=== PATIENT | female | born 1960 | race Caucasian/White ===

== ENCOUNTER 2018-06-02 19:14 | Emergency (ER) | payer OTHER ==
[2018-06-02 19:35] VITALS: BP 158/113; PULSE 118; TEMP 98.3; BMI 51.2
[2018-06-02] MEDS ORDERED: valACYclovir HCL 1000 MG TABLET PO ONE (20:08)
[2018-06-02] MEDS ORDERED: predniSONE 20 MG TABLET (UD) PO ONE (20:08)
[2018-06-02] MEDS ORDERED: predniSONE 20 MG TABLET (UD) ONE (20:17)
[2018-06-02] MEDS ORDERED: valACYclovir HCL 500 MG TABLET (FP) ONE (20:17)
--- NOTE | 2018-06-02 20:30 | PDOC ---
Documentation entered by Himanshu Hernandez SCRIBE, acting as scribe for Jorge Rincon MD. Jorge Rincon MD: This documentation has been prepared by the Mary luo Nirvannie, SCRIBE, under my direction and personally reviewed by me in its entirety. I confirm that the documentation accurately reflects all work, treatment, procedures, and medical decision making performed by me. History of Present Illness - General Chief Complaint: Facial Droop Stated Complaint: RIGHT FACIAL DROOP Time Seen by Provider: 06/02/18 19:18 History Source: Patient Exam Limitations: No Limitations - History of Present Illness Initial Comments: 06/02/18 20:30 HPI: The patient is a 58 year old female, with a significant past medical history of anxiety and depression, who presents to the emergency department with, right sided facial droop with decreased blinking to the right eye. As per patient, she noticed the onset of her symptoms at approximately 12pm today. She notes that she has to manually close her eye fully prompting her to go to urgent care at which time she was advised to report to the ED for further evaluation She denies any focal weakness or changes in strength/sensation. She denies any visionary or auditory changes. She denies recent fevers, chills, headache or dizziness. She denies recent nausea, vomit, diarrhea or constipation. She denies recent dysuria, frequency, urgency or hematuria. She denies recent chest pain or shortness of breath. PAST MEDICAL HISTORY: Anxiety and depression. PAST SURGICAL HISTORY: Tonsillectomy and . FAMILY HISTORY: no pertinent history SOCIAL HISTORY: Pt lives with family and is employed. MEDICATIONS: reviewed ALLERGIES: As per nursing notes ROS: General: No fevers or chills, no weakness, no weight loss HEENT: No change in vision. No sore throat,. No ear pain CardioVascular: No chest pain or shortness of breath Respiratory:No cough, or wheezing. Gastrointestinal: no nausea, vomiting, diarrhea or constipation, No rectal bleeding Genitourinary: No dysuria, hematuria, or frequency Musculoskeletal: No joint or muscle pain or swelling Neurologic: +Right facial droop. +Decreased blinking of the right eye. No headache, vertigo, dizziness or loss of consciousness Psychiatric: nor depression Skin: No rashes or easy bruising Endocrine: no increased thirst or abnormal weight change Allergic: no skin or latex allergy All other systems reviewed and normal Physical Exam: GENERAL: The patient is awake, alert, and fully oriented, in no acute distress. HEAD: Normal with no signs of trauma. EYES: Pupils equal, round and reactive to light, extraocular movements intact, sclera anicteric, conjunctiva clear. EXTREMITIES: Normal range of motion, no edema. NEUROLOGICAL: +Right sided facial droop involving forehead, decreased ability to close right eye. Normal speech, normal gait. PSYCH: Normal mood, normal affect. SKIN: Warm, Dry, normal turgor, no rashes or lesions noted. Past History - Past Medical History Allergies/Adverse Reactions: Allergies Allergy/AdvReac Type Severity Reaction Status Date / Time No Known Allergies Allergy Verified 06/02/18 19:15 Home Medications: Ambulatory Orders Bupropion HCl [Wellbutrin Xl -] 450 mg PO DAILY 06/02/18 Desvenlafaxine Succinate [Pristiq ER] 100 mg PO DAILY 06/02/18 Lisdexamfetamine Dimesylate [Vyvanse] 70 mg PO DAILY 06/02/18 Mv-Mn/Folic Acid/Vit [id number] [Alive Once Daily Women 50 Plus] 1 each PO DAILY 06/02/18 COPD: No Psychiatric Problems: Yes - Suicide/Smoking/Psychosocial Hx Smoking History: Never smoked Hx Alcohol Use: No Drug/Substance Use Hx: No *Physical Exam - Vital Signs Last Vital Signs Temp Pulse Resp BP Pulse Ox 98.3 F 118 H 18 158/113 H 100 06/02/18 19:15 06/02/18 19:15 06/02/18 19:15 06/02/18 19:15 06/02/18 19:15 ED Treatment Course - RADIOLOGY Radiology Studies Ordered: Category Date Time Status HEAD CT (STROKE) [CT] Stat CT Scan 06/02/18 19:36 Completed *DC/Admit/Observation/Transfer Diagnosis at time of Disposition: Serrano's palsy - Discharge Dispostion Disposition: HOME Condition at time of disposition: Good Decision to Admit order: No - Referrals - Patient Instructions Printed Discharge Instructions: DI for Serrano's Palsy Additional Instructions: Take 80mg of prednisone a day for 1 week then start tapering the dose according to the following schedule. jose maria 8 and 9 take 60mg day 10 and 11 take 40mg day 12 and 13 take 20mg day 14 and 15 take 10mg skip day 16 take 5mg on day 17 Take valtrex 1000mg 3 times a day for 7 days. Return to the emergency department immediately with ANY new, persistent or worsening symptoms. Continue any medications as previously prescribed by your physician. You should follow up with your primary doctor as soon as possible regarding today's emergency department visit. . Please make sure your doctor reviews the results of your emergency evaluation. Thank you for coming to the Emergency Department today for your care. It was a pleasure to see you today. Please note that your evaluation is INCOMPLETE until you follow-up with your doctor. - Post Discharge Activity
== END 2018-06-02 20:32 | disposition home or self-care (01) ==
LOC: FER 19:14
DX: G51.0 Bell's palsy (principal); F41.8 Other specified anxiety disorders; F32.9 Major depressive disorder, single episode, unspecified
CPT/HCPCS: 70450-TC; 99283-25